=== PATIENT | female | born 1955 | race Caucasian/White ===

== ENCOUNTER → 2017-11-29 07:50 | Outpatient (CLI) | payer MEDICARE, MEDICAID, SELFPAY ==
--- NOTE | 2017-11-29 07:56 | MRI_ITS ---
STUDY: MRI LUMBAR SPINE WITHOUT CONTRAST REASON FOR EXAM: Female, 62 years old. Low back pain. TECHNIQUE: Standardized fat and water weighted pulse sequences were obtained in the sagittal and axial planes. COMPARISON: None FINDINGS: T12-L1: Normal endplates. Normal disc height, signal and morphology. Normal bilateral facet joints. Normal central canal and bilateral lateral recesses. Normal bilateral intervertebral neural foramina. There is an exaggerated lumbar lordosis. There is no substantial scoliosis. Normal conus medullaris that terminates at the L1 level. L1-2: There is irregularity of the endplates probably related to small Schmorl's nodes. There is narrowing of the disc with endplate osteophytes. There is mild degenerative arthropathy of facet joints. Neural foramina are narrowed without evidence for nerve impingement. L2-3: There is mild annular disk bulge and osteophyte complex. There is mild degenerative arthropathy of the facet joints. Bilateral neuroforamina are narrowed without MR evidence for nerve impingement. There is no significant central canal stenosis. L3-4: There is mild annular disk bulge and osteophyte complex. There is mild degenerative arthropathy of the facet joints. Bilateral neuroforamina are narrowed with MR evidence for potential bilateral L3 nerve impingement. There is no significant central canal stenosis. Interpedicular screws are visible at L4. L4-5: There is mild anterolisthesis at this level. Patient has had surgical fusion of the segments with interpedicular screws and rods. There is significant artifact in this region related to the screws. Neural foramina are mildly narrowed without evidence for nerve impingement. L5-S1: There is narrowing of the disc. There is a disc bulge and osteophyte complex. There is mild degenerative arthropathy of facet joints. Neural foramina are bilaterally narrowed with potential impingement of the L5 nerve roots at the neural foramina, left greater than right. There is no significant central acquired canal stenosis. Normal visualized sacral ala. There are multiple renal cysts. The largest is on the left and measures approximately 4.3 cm. Paraspinal soft tissues are within normal limits. MRI/Spine Lumbar (Routine) IMPRESSION: 1. Status post surgical fusion of the L4 and L5 vertebral segments with interpedicular screws and rods. 2. Multilevel degenerative disc disease and degenerative arthropathy of the lumbar spine with acquired canal stenosis, neural foraminal narrowing and potential nerve impingement, as described. 3. Multiple bilateral renal cysts. Electronically Signed: Jane Spann MD at 10:11 EDT , Service support ,
== END ==
PROVIDERS: Family Provider Family Medicine; PCP Family Medicine; Visit Provider Anesthesiology Pain Medicine
DX: M54.9 Dorsalgia, unspecified (principal); M79.606 Pain in leg, unspecified
CPT/HCPCS: 72148

== ENCOUNTER → 2018-04-02 12:50 | Outpatient (CLI) | payer MEDICARE, MEDICAID, SELFPAY ==
[2018-04-02 14:39] LABS: Amphetamine Urine VISTA NEGATIVE (<1000 ng/mL); Barbiturate Urine VISTA NEGATIVE (< 200 ng/mL); Benzodiazepine Urine VISTA NEGATIVE (< 200 ng/mL); Cocaine Urine VISTA NEGATIVE (< 300 ng/mL); Ecstacy Urine VISTA NEGATIVE (< 500 ng/mL); Methadone Urine VISTA NEGATIVE (< 300 ng/mL); PCP Urine VISTA NEGATIVE (< 25 ng/mL); THC Urine VISTA NEGATIVE (< 50 ng/mL); Vista UDS pH Range 7
== END ==
PROVIDERS: Family Provider Family Medicine; PCP Family Medicine; Visit Provider Anesthesiology Pain Medicine
DX: F11.20 Opioid dependence, uncomplicated (principal)
CPT/HCPCS: 80307

== ENCOUNTER → 2019-01-04 12:03 | Outpatient (CLI) | payer MEDICARE, MEDICAID, SELFPAY ==
[2019-01-04 14:50] LABS: Amphetamine Urine VISTA NEGATIVE (<1000 ng/mL); Barbiturate Urine VISTA NEGATIVE (< 200 ng/mL); Benzodiazepine Urine VISTA NEGATIVE (< 200 ng/mL); Cocaine Urine VISTA NEGATIVE (< 300 ng/mL); Ecstacy Urine VISTA NEGATIVE (< 500 ng/mL); Methadone Urine VISTA NEGATIVE (< 300 ng/mL); PCP Urine VISTA NEGATIVE (< 25 ng/mL); THC Urine VISTA NEGATIVE (< 50 ng/mL); Vista UDS pH Range 7
== END ==
PROVIDERS: Family Provider Family Medicine; PCP Family Medicine; Referring Provider Anesthesiology Pain Medicine; Visit Provider Anesthesiology Pain Medicine
DX: F11.20 Opioid dependence, uncomplicated (principal)
CPT/HCPCS: 80307

== ENCOUNTER 2020-01-04 11:12 | Inpatient (IN) | payer MEDICARE, MEDICAID, SELFPAY ==
[2020-01-04] VITALS (11 sets, daily range): BP systolic 121–159; BP diastolic 71–86; PULSE 65–711; RESP 15–20; TEMP 36.3–36.8; O2SAT 90–97; BMI 45.8; BMI 45.9
--- NOTE | 2020-01-04 11:30 | NURSING ---
NO OLD EKGS
--- NOTE | 2020-01-04 11:32 | EKG12_ITS ---
Test Reason : ADMISSION Blood Pressure : / mmHG Vent. Rate : 063 BPM Atrial Rate : 063 BPM P-R Int : 182 ms QRS Dur : 092 ms QT Int : 434 ms P-R-T Axes : 052 059 049 degrees QTc Int : 444 ms Normal sinus rhythm Normal ECG When compared with ECG of 04-JAN-2020 11:26, MANUAL COMPARISON REQUIRED, DATA IS UNCONFIRMED Confirmed by QUINCY MORROW, KAYA ([id number]), market editor MARY SOLANO ([id number]) on 01/11/2020 9:49:55 AM Referred By: ABHIJIT Confirmed By:KAYA MATHEW MD
--- NOTE | 2020-01-04 11:33 | ED.VISSUMM ---
- ER Visit Summary Date of Service: 01/04/20 Chief Complaint: [Chest pain] History of Present Illness: The patient is a 64 F [presents to the emergency department complaint of chest pain that woke her up from sleep this morning. She rates the pain currently 6 out of 10. EMS gave patient aspirin and 2 nitroglycerin tablets which seem to help. Patient's had similar pain in the past when she had a dissected coronary artery that did not require any intervention. Her last cath was in 2011 at [facility] and no intervention was required with that dissected coronary artery. Patient describes a pressure and sharp pain in the center of her chest that radiates to both arms. She denies nausea or vomiting. She denies diaphoresis. She denies any significant shortness of breath. Denies recent travel or surgery. No history of PE or DVT. She has no cardiac stents. She has history of hypothyroidism, depression, and anxiety.] Physical Examination: [HEENT-PERRLA, EOMI. Cranial nerves II through XII grossly intact. TMs clear. Mucous membranes moist. No adenopathy. Cardiovascular-regular rate and rhythm without murmur or ectopy Lungs-clear to auscultation, chest wall stable without crepitus or subcu emphysema Abdomen-normoactive bowel sounds, soft, nontender, no rebound or rigidity, no peritoneal signs. Extremities-intact ?4, normal range of motion, normal pulses, atraumatic] Test Results: [EKG obtained on arrival shows sinus rhythm with a ventricular rate of 65 bpm with no acute ST segment changes.] Emergency Department Course and Treatment: [] Treatment Plan: [] Disposition: [] Impression: [] This note was generated with Active Scaler dictation software. It may contain incorrect words, spelling, and punctuation that were not noted in review of the chart prior to signing ED Disposition - Plan for ED Patient: Referrals: Sandro Landin MD [Primary Care Provider] -
[2020-01-04 11:59] LABS: Absolute Lymphocyte Count 2.35 X10^3/uL (0.83-4.51); Absolute Neutrophil Count 6.6 X10^3/uL (2.0-7.7); Basophil# 0.02 X10^3/uL; Basophil% 0.2 % (0-1); Eosinophil# 0.23 X10^3/uL; Eosinophils% 2.3 % (0-5); Hematocrit 43.5 % (37-47); Hemoglobin 14.3 g/dL (12.0-15.0); Lymphocyte # 2.35 X10^3/ul (4.0); Lymphocyte % 23.5 % (19-41); Mean Corp Hgb Conc 32.9 g/dL (32-36); Mean Corpuscular Hgb 32.1 pg (27.0-32.0); Mean Corpuscular Volume 97.5 fL (81-99); Mean Platelet Vol. 11.3 fl (6.2-12.0); Monocyte# 0.79 X10^3/uL; Monocyte% 7.9 % (0-10); NRBC Flagged by Analyzer 0 % (0-5); Neutrophil # 6.57 X10^3/uL (2.7-7.7); Neutrophil % 65.7 % (47-70); Platelet Count 295 K/mm3 (150-450); RBC Distribution Width CV 15.5 % (11.6-14.6); RBC Distribution Width SD 55.3 fl (35.1-43.9); Red Blood Count 4.46 M/mm3 (4.2-5.4)
[2020-01-04] MEDS: Nitroglycerin SL (ED/IMG/CATH) 0.4 MG TABLET SUBLINGUAL ×2 (12:05→12:25)
[2020-01-04 12:06] LABS: D-Dimer Quantitative (DVT/PE) 0.35 FEU/ug/m (0.27-0.49)
[2020-01-04] MEDS: HYDROmorphone 1 MG/ML Syringe IV (12:06)
[2020-01-04 12:15] LABS: Anion Gap 5 (5-15); BUN 16 mg/dL (7-18); BUN/Creat Ratio 18.3 RATIO (10-20); Calcium,Total 9.4 mg/dL (8.5-10.1); Chloride 105 mmol/L (98-107); Creatinine, Serum 0.87 mg/dL (0.55-1.02); EST Glomerular Filtration Rate 70 mL/min (>60); Est Glom Filt Rate - Afr Amer 84 mL/min (>60); Estimated Creatinine Clearance 55.46 ml/min; Glucose 126 mg/dL (74-106); Potassium 4.7 mmol/L (3.5-5.1); Sodium Level 138 mmol/L (136-145)
[2020-01-04] MEDS: 0.9% Normal Saline 1,000 ML 150 ML IV (12:30)
--- NOTE | 2020-01-04 12:30 | RAD_ITS ---
STUDY: X-RAY CHEST REASON FOR EXAM: Female, 64 years old. LEFT SIDED CHEST PAIN THAT STARTED THIS MORNING AROUND 0730 TECHNIQUE: Single AP portable view of the chest. COMPARISON: None. FINDINGS: EKG electrodes are seen. The lungs are clear and expanded. There is no demonstrated pleural abnormality. There is borderline cardiomegaly. Normal mediastinum and spencer. Normal visualized pulmonary arteries. There is atherosclerotic calcification of the aortic arch with tortuosity. There are degenerative changes of the visualized thoracic spine. Normal visualized ribs, clavicles, and shoulders. There is no demonstrated abnormality of the visualized soft tissue structures of the upper abdomen. RAD/Chest 1 View (Portable) IMPRESSION: Borderline cardiomegaly. No acute osseous Electronically Signed: Javier Fonseca, at 12:43 EDT , Service support ,
--- NOTE | 2020-01-04 13:00 | NURSING ---
PCU OBS NSTEMI, ACS PAINTSIL
[2020-01-04] MEDS: Enoxaparin 120 MG/0.8 ML Syringe SC ×2 (13:18→22:14)
--- NOTE | 2020-01-04 13:29 | HP.PCM_ITS ---
Problem List (1) NSTEMI (non-ST elevated myocardial infarction) Status: Acute (2) Hypothyroid Status: Chronic Qualifiers: Hypothyroidism type: unspecified Qualified Code(s): E03.9 - Hypothyroidism, unspecified (3) Depression Status: Chronic Qualifiers: Depression Type: unspecified Qualified Code(s): F32.9 - Major depressive disorder, single episode, unspecified (4) Anxiety Status: Chronic (5) Morbid obesity with BMI of 40.0-44.9, adult Status: Chronic History of Present Illness Date of Admission: 01/04/20 Chief Complaint: Chest pain - 1 day The patient is a 64 year old F with past medical history of hypothyroidism who comes in with complaints of chest pain that was substernal, radiating to both arms, associated with some lightheadedness and diaphoresis. This chest pain woke her up and lasted until the EMS came for her and gave her 2 nitros. She denied any history of heart disease. Vitals in the ED showed temp 97.4F, HR 74, BP 139/84, RR 20, Spo2 94%. Labs in the ED showed WBC 10.0, Hb 14.3, Plt 295, D-Dimer 0.35, BMP is unremarkable. Troponins are 0.223, and 1.520. EKG showed NSR, no ST-T changes. Chest X-ray showed borderline cardiomegaly. 2D-ECHO shows EF of 65%. At time of being examined, patient was pain-free. She complains rather of headache after the nitroglycerin tablets. Past Medical History Past Medical History (Chronic Problems): Chronic Problems Rosacea (Chronic) Hypothyroid (Chronic) Depression (Chronic) Anxiety (Chronic) Morbid obesity with BMI of 40.0-44.9, adult (Chronic) Allergies Cephalosporins Allergy (Verified 01/04/20 11:12) Rash sulfamethoxazole [From Bactrim] Allergy (Verified 01/04/20 11:12) Rash trimethoprim [From Bactrim] Allergy (Verified 01/04/20 11:12) Rash Home Medications: Ambulatory Orders Medication Instructions Recorded Citalopram [Celexa] 40 mg PO DAILY 11/17/15 Levothyroxine [Synthroid] 175 mcg PO DAILY 11/17/15 Metoprolol(XL)Succ [Toprol Xl 25 mg PO DAILY 11/17/15 (Beta Terry)] cycloBENZAPRine HCl [Flexeril] 10 mg PO TID PRN PRN 11/17/15 Ascorbic Acid [Vitamin C] 2,000 mg PO DAILY 01/04/20 Cranberry Conc/Ascorbic Acid 3 cap PO DAILY 01/04/20 [Cranberry 12,600 mg Softgel] Elderberry Fruit and Flower [Black 2 cap PO DAILY 01/04/20 Elderberry 575 mg Cap] Hydroxyzine HCl 25 mg PO TID PRN PRN 01/04/20 Ibuprofen 800 - 1,000 mg PO DAILY PRN PRN 01/04/20 Multivit-Min/Iron/Folic/Lutein 1 tab PO DAILY 01/04/20 [Centrum Silver Women Tablet] Oxycodone Myristate [Xtampza ER] 18 mg PO BID 01/04/20 Senna/Docusate Sodium [Senokot-S] 2 tab PO DAILY PRN PRN 01/04/20 Turmeric Root Extract [Turmeric] 1,500 mg PO DAILY 01/04/20 Surgical History: cholecystectomy, hysterectomy, total knee arthroplasty - left, - - bladder sling Psychiatric History: Anxiety, Depression [employer] 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 Lives: Spouse/ Significant Other Smoking Status: Current every day smoker Tobacco Use: Cigarettes Alcohol: None Drugs: None - *Family History Maternal History Items: Cancer - age 79 pancreatic Paternal History Items: Stroke - age 84 Sibling History Items: Cancer - breast x 2 sisters Review of Systems Constitutional: Denies: Anorexia, Chills, Fever, Malaise, Weakness, Weight Change Eyes: Denies: Blurred vision, Cataracts, Conjunctivae Inflammation, Double vision, Pain, Redness, Vision Change HEENT: Denies: Difficulty Hearing, Difficulty Swallowing, Head Aches, Hearing Changes, Sinus Congestion, Sinus Drainage Cardiovascular: Reports: Chest Pain, Chest Pressure, Chest Tightness, Light Headedness. Denies: Orthopnea, Palpitations, Paroxysmal Noc. Dyspnea Respiratory: Denies: Cough, Hemoptysis, Shortness of breath at rest, Shortness of breath upon exertion, Sputum production Gastrointestinal: Denies: Abdominal Pain, Nausea, Vomiting Genitourinary: Denies: Dysuria Musculoskeletal: Denies: Joint Pain, Joint stiffness, Joint swelling, Joint Tenderness Skin: Denies: Rash, Wounds Neurological: Denies: Difficulty swallowing, Focal weakness, Numbness, Tingling Psychiatric: Denies: Anxiety, Depression, Homicidal Ideations, Suicidal Ideations Hematologic/ Lymphatic: Denies: Easy Bruising, Easy Bleeding VTE Information - Inpt Only VTE Present on Admission: No VTE Pharm Prophylaxis ordered?: Yes Patient Problems: Active and Suspected Problems NSTEMI (non-ST elevated myocardial infarction) (Acute) - Physical Exam Vitals/I&O's: Vital Signs Temp Pulse Resp BP Pulse Ox 97.4 F L 74 20 H 139/84 H 94 01/04/20 13:20 01/04/20 13:20 01/04/20 13:20 01/04/20 13:20 01/04/20 13:20 Oxygen Delivery Method Room Air Weight: 117.4 kg Body Mass Index (BMI) 45.8 General: Alert, Oriented x3, Cooperative, No apparent distress, - - morbidly obese HEENT: Atraumatic, PERRLA, EOMI, Normocephalic Oral: Moist Mucosa Neck: Supple Lungs: Clear to auscultation, Normal air movement Cardiovascular: Regular rate, Regular Rhythm, Normal S1, Normal S2 Abdomen: Bowel Sounds Present, Soft, Non Tender, Non-Distended, No Hepato- splenomegaly Extremities: No edema Skin: No rashes, No breakdown Musculoskeletal: No Tenderness to Palpation of Joints or Extremities Lymphatic: No Cervical, Supraclavicular, or Inguinal Adenopathy Neurological: Cranial nerves II-XII grossly intact, Neuro grossly intact Psych/Mental Status: Normal Affect, Appropriate Laboratory Results 01/04/20 11:25: WBC 10.0, RBC 4.46, Hgb 14.3, Hct 43.5, MCV 97.5, MCH 32.1 H, MCHC 32.9, RDW Std Deviation 55.3 H, RDW Coeff of Era 15.5 H, Plt Count 295, MPV 11.3, Immature Gran % (Auto) 0.400, Neut % (Auto) 65.7, Lymph % (Auto) 23.5, [place] % (Auto) 7.9, Eos % (Auto) 2.3, Baso % (Auto) 0.2, Absolute Neuts (auto) 6.6, Absolute Lymphs (auto) 2.35, Nucleated RBC % 0 01/04/20 11:25: D-Dimer Quant (PE/DVT) 0.35 01/04/20 11:25: Sodium 138, Potassium 4.7, Chloride 105, Carbon Dioxide 28.0, Anion Gap 5, BUN 16, Creatinine 0.87, Estim Creat Clear Calc 55.46, Est GFR (MDRD) Af Amer 84, Est GFR (MDRD) Non-Af 70, BUN/Creatinine Ratio 18.3, Glucose 126 H, Calcium 9.4, Troponin I 0.223 H Current Medications Sodium Chloride () 1,000 mls @ 150 mls/hr IV .Q6H40M [facility] Last Admin: 01/04/20 12:30 Dose: 150 mls/hr Documented by: Nitroglycerin (Nitrostat) 0.4 mg SUBLINGUAL Q5M PRN PRN Reason: Chest pain Last Admin: 01/04/20 12:25 Dose: 0.4 mg Documented by: Assessment/Plan All Active Problems NSTEMI (non-ST elevated myocardial infarction) (Acute) Spinal stenosis (Acute) S/P laminectomy (Acute) 1. Acute NSTEMI, EKG shows no acute ST-T changes Initial troponin was 0.223, repeat troponin was 1.520. Started on Lovenox in the ED, continue on oral metoprolol, aspirin, Plavix Cardiology consulted, cardiac cath planned for a.m. 2. Hypertension, controlled, continue metoprolol 3. Hypothyroidism, continue on Synthroid 4. Morbid Obesity, BMI 45.9, lifestyle modification recommended 5. Nicotine dependence, on replacement 6. DVT PPx- on Lovenox therapeutic dosing Inpatient E&M: 08175 Init Hosp L3
--- NOTE | 2020-01-04 13:58 | ECHOD_ITS ---
Reason For Study: CP Procedure This was a 2D Doppler, Color Flow transthoracic echocardiogram. Exam performed portable in patient room. Left Ventricle Normal LV size. The estimated ejection fraction is 65 %. Normal diastology for age. No regional wall motion abnormalities noted. Right Ventricle Normal RV size. Normal systolic function. Atria Normal left atrium. Normal right atrium. No doppler evidence for ASD. Mitral Valve There is no mitral valve stenosis. No mitral valve insufficiency. Tricuspid Valve There is no tricuspid stenosis. Trivial tricuspid valve insufficiency. Unable to estimate RV systolic pressure due to insufficient tricuspid regurgitant envelope. Aortic Valve Trisinus/trileaflet aortic valve. There is no aortic stenosis. Trivial aortic valve insufficiency. Pulmonic Valve There is no pulmonic valvular stenosis. No pulmonic valve insufficiency. Great Vessels Normal aortic root. Pericardium/Pleural No pericardial effusion. MMode/2D Measurements & Calculations LVIDd: 4.1 cm IVSd: 1.6 cm Ao root diam: 3.9 cm LVIDs: 2.9 cm LVPWd: 1.3 cm LA dimension: 4.0 cm RVDd: 4.0 cm FS: 29.7 % LAV(MOD-bp): 57.4 ml LVAd ap4: 30.8 cm2 SV(MOD-sp4): 61.2 ml LAV(MOD-bp) Indexed: 27.0 ml/m2 EDV(MOD-sp4): 92.1 ml LAV(MOD-sp2): 57.3 ml EDV(sp4-el): 95.4 ml LAV(MOD-sp4): 54.9 ml LVAs ap4: 15.4 cm2 ESV(MOD-sp4): 30.9 ml ESV(sp4-el): 29.0 ml EF(MOD-sp4): 66.5 % EF(sp4-el): 69.6 % SV(sp4-el): 66.4 ml LA A4 area: 19.2 cm2 RA A4 area: 15.7 cm2 Time Measurements MV dec time: 0.23 sec Doppler Measurements & Calculations MV E max dayday: 83.0 cm/sec Lat Peak E' Dayday: 10.3 cm/sec Med Peak E' Dayday: 6.6 cm/sec MV A max dayday: 94.4 cm/sec E/E' lat: 8.1 E/E' med: 12.6 MV E/A: 0.88 MV V2 max: 111.7 cm/sec MV P1/2t max dayday: 97.3 cm/sec Ao V2 max: 119.3 cm/sec MV max P.0 mmHg MV P1/2t: 79.9 msec Ao max P.7 mmHg MV V2 mean: 60.3 cm/sec MV mean P.7 mmHg MV dec slope: 356.6 cm/sec2 MV V2 VTI: 31.0 cm MVA(P1/2t): 2.8 cm2 LV V1 max: 81.2 cm/sec PA V2 max: 84.7 cm/sec PI end-d dayday: 89.6 cm/sec LV V1 max P.6 mmHg Interpretation Summary The estimated ejection fraction is 65 %. Trivial aortic valve insufficiency. Ordering Physician: Shantel Mccloud Referring Physician: Sandro Landin Performed By: Felipe Burton RCS
--- NOTE | 2020-01-04 14:12 | EKG12_ITS ---
Test Reason : CP Blood Pressure : / mmHG Vent. Rate : 065 BPM Atrial Rate : 065 BPM P-R Int : 168 ms QRS Dur : 090 ms QT Int : 438 ms P-R-T Axes : 049 059 049 degrees QTc Int : 455 ms Normal sinus rhythm Normal ECG Confirmed by DONYA SLAUGHTER ([id number]), editorial director MARY SOLANO ([id number]) on 01/06/2020 7:37:44 AM Referred By: BERE Confirmed By:DONYA SLAUGHTER
--- NOTE | 2020-01-04 16:00 | CON.PCM_ITS ---
Reason for Consult Date of Consultation: 01/04/20 History of Present Illness: The patient is a 64 F [presents to the emergency department complaint of chest pain that woke her up from sleep this morning. She rates the pain currently 6 out of 10. EMS gave patient aspirin and 2 nitroglycerin tablets which seem to help. Patient's had similar pain in the past when she had a dissected coronary artery that did not require any intervention. Her last cath was in 2011 at [facility] and no intervention was required with that dissected coronary artery. Patient describes a pressure and sharp pain in the center of her chest that radiates to both arms. She denies nausea or vomiting. She denies diaphor esis. She denies any significant shortness of breath. Denies recent travel or surgery. No history of PE or DVT. She has no cardiac stents. She has history of hypothyroidism, depression, and anxiety. Patient's troponin went up to 1.5. Review of systems: All systems reviewed. All else is negative except that in the HPI. Past Medical History Allergies/Adverse Reactions: Allergies Cephalosporins Allergy (Verified 01/04/20 11:12) Rash sulfamethoxazole [From Bactrim] Allergy (Verified 01/04/20 11:12) Rash trimethoprim [From Bactrim] Allergy (Verified 01/04/20 11:12) Rash Home Medications: Ambulatory Orders Medication Instructions Recorded Citalopram [Celexa] 40 mg PO DAILY 11/17/15 Levothyroxine [Synthroid] 175 mcg PO DAILY 11/17/15 Metoprolol(XL)Succ [Toprol Xl 25 mg PO DAILY 11/17/15 (Beta Terry)] cycloBENZAPRine HCl [Flexeril] 10 mg PO TID PRN PRN 11/17/15 Ascorbic Acid [Vitamin C] 2,000 mg PO DAILY 01/04/20 Cranberry Conc/Ascorbic Acid 3 cap PO DAILY 01/04/20 [Cranberry 12,600 mg Softgel] Elderberry Fruit and Flower [Black 2 cap PO DAILY 01/04/20 Elderberry 575 mg Cap] Hydroxyzine HCl 25 mg PO TID PRN PRN 01/04/20 Ibuprofen 800 - 1,000 mg PO DAILY PRN PRN 01/04/20 Multivit-Min/Iron/Folic/Lutein 1 tab PO DAILY 01/04/20 [Centrum Silver Women Tablet] Oxycodone Myristate [Xtampza ER] 18 mg PO BID 01/04/20 Senna/Docusate Sodium [Senokot-S] 2 tab PO DAILY PRN PRN 01/04/20 Turmeric Root Extract [Turmeric] 1,500 mg PO DAILY 01/04/20 Past Medical History (Chronic Problems): Chronic Problems Rosacea (Chronic) Hypothyroid (Chronic) Depression (Chronic) Anxiety (Chronic) Morbid obesity with BMI of 40.0-44.9, adult (Chronic) Surgical History: cholecystectomy, hysterectomy, total knee arthroplasty - left, - - bladder sling Psychiatric History: Anxiety, Depression 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 - *Family History Maternal History Items: Cancer - age 79 pancreatic Paternal History Items: Stroke - age 84 Sibling History Items: Cancer - breast x 2 sisters Smoking Status: Current every day smoker Objective: Vital Signs Temp Pulse Resp BP Pulse Ox 97.9 F 89 16 138/77 H 90 01/04/20 14:38 01/04/20 14:38 01/04/20 14:38 01/04/20 14:38 01/04/20 14:45 Oxygen Delivery Method Room Air Weight: 258 lb 13.163 oz Body Mass Index (BMI) 45.8 Intake and Output for Last 24 Hours 01/02/20 01/03/20 01/04/20 23:59 23:59 23:59 Intake Total 327.5 / 327.5 Balance 327.5 / 327.5 General: Awake, Alert, Oriented x 3 HEENT: Atraumatic Oral: Moist Mucosa Neck: Supple Lungs: Clear to auscultation Cardiovascular: Regular Rhythm Abdomen: Soft Extremities: No edema Skin: No Rashes Psych/Mental Status: Appropriate 01/04/20 11:25: WBC 10.0, RBC 4.46, Hgb 14.3, Hct 43.5, MCV 97.5, MCH 32.1 H, MCHC 32.9, Plt Count 295, MPV 11.3, Immature Gran % (Auto) 0.400, Neut % (Auto) 65.7, Lymph % (Auto) 23.5, [place] % (Auto) 7.9, Eos % (Auto) 2.3, Baso % (Auto) 0.2, Absolute Neuts (auto) 6.6, Nucleated RBC % 0 01/04/20 11:25: D-Dimer Quant (PE/DVT) 0.35 01/04/20 11:25: Sodium 138, Potassium 4.7, Chloride 105, Carbon Dioxide 28.0, Anion Gap 5, BUN 16, Creatinine 0.87, Est GFR (MDRD) Af Amer 84, Est GFR (MDRD) Non-Af 70, BUN/Creatinine Ratio 18.3, Glucose 126 H, Calcium 9.4, Troponin I 0.223 H 01/04/20 14:19: Troponin I 1.520 H* Rhythm: EKG: ECHO: Stress Test: Cardiac Cath: PCI: CT Surgery: Holter monitor: EPS: PPM: CXR: Chest CT Scan: Assessment/Plan 1. Non-STEMI: Agree with starting the patient on anticoagulation with heparin or Lovenox. We will proceed with coronary angiography tomorrow. Continue aspirin, Plavix and metoprolol.
[2020-01-04] MEDS: 0.9% Saline Lock 10 ML Syringe IV ×3 (16:12→17:59)
[2020-01-04] MEDS: Morphine 2 MG/ML Syringe IV (16:12)
[2020-01-04] MEDS: Ondansetron 4 MG/2 ML Vial IV (17:07)
[2020-01-04] MEDS: Ketorolac 30 MG/ML Syringe IV (17:59)
[2020-01-04] MEDS: Ketorolac 10 MG Tablet PO (22:14)
[2020-01-04] MEDS: MELATONIN 3 MG TABLET PO (22:14)
[2020-01-04] MEDS: hydrOXYzine PAM 25 MG Capsule PO (22:15)
[2020-01-05] VITALS (22 sets, daily range): BP systolic 116–154; BP diastolic 66–91; PULSE 69–88; RESP 18; TEMP 36.5–36.9; O2SAT 92–96
[2020-01-05] MEDS: Ondansetron 4 MG/2 ML Vial IV ×3 (01:11→19:33)
[2020-01-05] MEDS: 0.9% Saline Lock 10 ML Syringe IV (01:11)
[2020-01-05] MEDS: Ibuprofen 400 MG Tablet PO (04:11)
[2020-01-05 05:23] LABS: Absolute Lymphocyte Count 1.89 X10^3/uL (0.83-4.51); Absolute Neutrophil Count 6.7 X10^3/uL (2.0-7.7); Basophil# 0.02 X10^3/uL; Basophil% 0.2 % (0-1); Eosinophil# 0.19 X10^3/uL; Hematocrit 42.5 % (37-47); Hemoglobin 13.5 g/dL (12.0-15.0); Lymphocyte # 1.89 X10^3/ul (4.0); Mean Corp Hgb Conc 31.8 g/dL (32-36); Mean Corpuscular Hgb 31.3 pg (27.0-32.0); Mean Corpuscular Volume 98.4 fL (81-99); Mean Platelet Vol. 10.2 fl (6.2-12.0); Monocyte# 0.66 X10^3/uL; NRBC Flagged by Analyzer 0 % (0-5); Neutrophil # 6.65 X10^3/uL (2.7-7.7); Neutrophil % 70.5 % (47-70); Platelet Count 277 K/mm3 (150-450); RBC Distribution Width CV 15.6 % (11.6-14.6); RBC Distribution Width SD 56.3 fl (35.1-43.9); Red Blood Count 4.32 M/mm3 (4.2-5.4); White Blood Count 9.4 K/mm3 (4.4-11.0)
[2020-01-05 05:42] LABS: ALB/GLOB Ratio 0.9 RATIO (0.9-2.4); AST(SGOT) 120 U/L (15-37); Alanine Aminotransfer ALT/SGPT 85 U/L (13-56); Albumin, Serum 3.2 g/dL (3.2-5.0); Alkaline Phosphatase 121 U/L (45-117); Anion Gap 6 (5-15); BUN 14 mg/dL (7-18); BUN/Creat Ratio 18.2 RATIO (10-20); Calcium,Total 8.9 mg/dL (8.5-10.1); Chloride 103 mmol/L (98-107); Cholesterol 237 mg/dL (200); Creatinine, Serum 0.77 mg/dL (0.55-1.02); EST Glomerular Filtration Rate 81 mL/min (>60); Est Glom Filt Rate - Afr Amer 98 mL/min (>60); Estimated Creatinine Clearance 59.91 ml/min; Globulin 3.5 g/dL (2.2-4.2); Glucose 105 mg/dL (74-106); High Density Lipoprotein 45 mg/dL; Protein, Total 6.7 g/dL (6.4-8.2); Sodium Level 138 mmol/L (136-145); Triglycerides 135 mg/dL; Very Low Density Lipoprotein 27 mg/dL (5-40)
[2020-01-05] MEDS: Aspirin E.C. 81 MG Tablet PO (06:29)
[2020-01-05] MEDS: Levothyroxine 175 MCG Tablet PO (06:29)
[2020-01-05] MEDS: hydrOXYzine PAM 25 MG Capsule PO ×3 (06:29→21:03)
[2020-01-05] MEDS: Clopidogrel Bisulfate 75 MG Tablet PO (06:30)
[2020-01-05] MEDS: Metoprolol(XL)Succ 25 MG Tablet PO (06:30)
--- NOTE | 2020-01-05 08:35 | PCM.PN.HOSP ---
Patient Problems: Active and Suspected Problems NSTEMI (non-ST elevated myocardial infarction) (Acute) Reason for Visit: Follow-up on acute NSTEMI Subjective: Patient was seen and examined. She had a cardiac cath done that was unremarkable. Denied any new complaints. CT of the chest rule out PE was recommended. Objective: Physical exam: General: Alert, Oriented x3, Cooperative, No apparent distress HEENT: Atraumatic, PERRLA, EOMI, Normocephalic Oral: Dry Mucosa Neck: Supple, No JVD, Negative Carotid Bruits Lungs: Clear to auscultation, Normal air movement, No rhonchi, No wheeze Cardiovascular: Irregular Rate - Afib, rate controlled. Abdomen: Bowel Sounds Present, Soft, Non Tender, Non-Distended, No Hepato-splenomegaly Extremities:Edema +1-2, with evidence of wrinkling of skin Skin: - - see previous notes as lower extremities are DOE-wrapped Musculoskeletal: No Tenderness to Palpation of Joints or Extremities Lymphatic: No Cervical, Supraclavicular, or Inguinal Adenopathy Neurological: Cranial nerves II-XII grossly intact, Neuro grossly intact, Motor Exam 5/5 strength throughout Psych/Mental Status: Normal Affect, Appropriate, Alert and oriented to time, place, person, mood and affect Vitals/I&O's: Vital Signs Temp Pulse Resp BP Pulse Ox 98.1 F 76 18 152/85 H 96 01/05/20 06:25 01/05/20 06:49 01/05/20 06:25 01/05/20 06:30 01/05/20 06:25 Oxygen Delivery Method Room Air Weight: 114.3 kg Body Mass Index (BMI) 45.8 Intake and Output for Last 24 Hours 01/03/20 01/04/20 01/05/20 23:59 23:59 23:59 Intake Total 767.5 / 767.5 Balance 767.5 / 767.5 Laboratory Results 01/04/20 11:25: WBC 10.0, RBC 4.46, Hgb 14.3, Hct 43.5, MCV 97.5, MCH 32.1 H, MCHC 32.9, RDW Std Deviation 55.3 H, RDW Coeff of Era 15.5 H, Plt Count 295, MPV 11.3, Immature Gran % (Auto) 0.400, Neut % (Auto) 65.7, Lymph % (Auto) 23.5, Jessamine % (Auto) 7.9, Eos % (Auto) 2.3, Baso % (Auto) 0.2, Absolute Neuts (auto) 6.6, Absolute Lymphs (auto) 2.35, Nucleated RBC % 0 01/04/20 11:25: D-Dimer Quant (PE/DVT) 0.35 01/04/20 11:25: Sodium 138, Potassium 4.7, Chloride 105, Carbon Dioxide 28.0, Anion Gap 5, BUN 16, Creatinine 0.87, Estim Creat Clear Calc 55.46, Est GFR (MDRD) Af Amer 84, Est GFR (MDRD) Non-Af 70, BUN/Creatinine Ratio 18.3, Glucose 126 H, Calcium 9.4, Troponin I 0.223 H 01/04/20 14:19: Troponin I 1.520 H* 01/04/20 17:15: Troponin I 8.540 H* 01/05/20 04:46: WBC 9.4, RBC 4.32, Hgb 13.5, Hct 42.5, MCV 98.4, MCH 31.3, MCHC 31.8 L, RDW Std Deviation 56.3 H, RDW Coeff of Era 15.6 H, Plt Count 277, MPV 10.2, Immature Gran % (Auto) 0.300, Neut % (Auto) 70.5 H, Lymph % (Auto) 20.0, Jessamine % (Auto) 7.0, Eos % (Auto) 2.0, Baso % (Auto) 0.2, Absolute Neuts (auto) 6.7, Absolute Lymphs (auto) 1.89, Nucleated RBC % 0 01/05/20 04:46: Sodium 138, Potassium 4.0, Chloride 103, Carbon Dioxide 29.0, Anion Gap 6, BUN 14, Creatinine 0.77, Estim Creat Clear Calc 59.91, Est GFR (MDRD) Af Amer 98, Est GFR (MDRD) Non-Af 81, BUN/Creatinine Ratio 18.2, Glucose 105, Calcium 8.9, Total Bilirubin 0.40, AST 120 H, ALT 85 H, Alkaline Phosphatase 121 H, Total Protein 6.7, Albumin 3.2, Globulin 3.5, Albumin/Globulin Ratio 0.9, Triglycerides 135, Cholesterol 237 H, LDL Cholesterol 165 H, VLDL Cholesterol 27, HDL Cholesterol 45 Current Medications Acetaminophen (Tylenol) 650 mg PO Q6H PRN PRN PRN Reason: Pain Score 1-10/Temp > 100.7 F Aspirin (Ecotrin) 81 mg PO DAILY@0800 [facility] Last Admin: 01/05/20 06:29 Dose: 81 mg Documented by: Citalopram Hydrobromide (Celexa) 30 mg PO DAILY [facility] Clopidogrel Bisulfate (Plavix) 75 mg PO DAILY [facility] Last Admin: 01/05/20 06:30 Dose: 75 mg Documented by: Cyclobenzaprine HCl (Flexeril) 10 mg PO TID PRN PRN PRN Reason: muscle relaxation Enoxaparin Sodium (Lovenox) 120 mg SC Q12 [facility] Last Admin: 01/05/20 06:29 Dose: Not Given Documented by: Hydroxyzine Pamoate (Vistaril Pamoate Capsule) 25 mg PO TID [facility] Last Admin: 01/05/20 06:29 Dose: 25 mg Documented by: Sodium Chloride () 1,000 mls @ 0 mls/hr IV .Q0M [facility] Levothyroxine Sodium (Synthroid) 175 mcg PO DAILY@0600 [facility] Last Admin: 01/05/20 06:29 Dose: 175 mcg Documented by: Metoprolol Succinate (Toprol Xl (Beta Terry)) 25 mg PO DAILY [facility] Last Admin: 01/05/20 06:30 Dose: 25 mg Documented by: Morphine Sulfate () 2 mg IV Q3H PRN PRN PRN Reason: Pain Score 6-10/10 Last Admin: 01/04/20 16:12 Dose: 2 mg Documented by: Nicotine (Nicoderm Cq (Pbkc)) 21 mg TRANSDERM. DAILY [facility] Nicotine Polacrilex (Rugby Nicotine (Bkc)) 2 mg PO Q2H PRN PRN PRN Reason: Nicotine Craving Nitroglycerin (Nitrostat) 0.4 mg SUBLINGUAL Q5M PRN PRN Reason: CARDIAC/CHEST PAIN Ondansetron HCl (Zofran) 4 mg IV Q8H PRN PRN PRN Reason: NAUSEA/VOMITING Last Admin: 01/05/20 01:11 Dose: 4 mg Documented by: Senna/Docusate Sodium (Senokot-S, Sena-Colace) 2 tablet PO DAILY PRN PRN PRN Reason: Constipation Sodium Chloride () 10 - 40 ml IV UD PRN PRN Reason: SALINE FLUSH Last Admin: 01/05/20 01:11 Dose: 10 ml Documented by: STROKE Vital Signs/Narrative: Vital Signs Temp Pulse Resp BP Pulse Ox 01/05/20 06:49 76 01/05/20 06:30 88 152/85 H 01/05/20 06:25 98.1 F 88 18 152/85 H 96 Medical Necessity - Tobacco Use Smoking Status: Current every day smoker Tobacco Use: Cigarettes Assessment/Plan All Active Problems NSTEMI (non-ST elevated myocardial infarction) (Acute) Spinal stenosis (Acute) S/P laminectomy (Acute) 1. Acute NSTEMI, post cardiac cath on 01/05/[address] of the chest plan for tomorrow after IV fluids to prevent contrast nephropathy 2. Hypertension, controlled, continue metoprolol 3. Hypothyroidism, continue on Synthroid 4. Morbid Obesity, BMI 45.9, lifestyle modification recommended 5. Nicotine dependence, on replacement 6. DVT PPx- on Lovenox therapeutic dosing Inpatient E&M: 31766 Subs Hosp L2
--- NOTE | 2020-01-05 09:10 | NURSING ---
This RN called and gave report to BEATRICE Suárez in laborer.
--- NOTE | 2020-01-05 10:04 | CASEMGMT ---
Pt is getting a heart cath at this time. This RN CM to f/u later for CM assessment. SStaten RN CM
--- NOTE | 2020-01-05 10:57 | CL.D_ITS ---
Patient Name: EMELY SAL Study Date: 01/05/2020 Performing: Tyrel Rodríguez MD Ht: 63 inches 160 cm : 1955 Wt: 251.7 lbs 114 kg Age: 64 Gender: female BSA: 2.13 PROCEDURE(S) PERFORMED [id number] GUIDED ACCESS [id number] CLINICAL PROFILE AND INDICATIONS Indications: ACS <= 24 hrs Heart Failure: None Stress/Imaging Stress/Image Study Performed: No CAD Presentations: Non-STEMI. Symptom onset Date/Time: 01/04/20 Time Not Available CONCLUSIONS No significant obstructive stenoses. No significant RECOMMENDATIONS DESCRIPTION OF PROCEDURE The patient arrived to the procedure lab. The risks and benefits of the procedure as well as a full d escription of our services here and current unavailability of surgical backup were fully explained to the patient and/or their significant other prior to the catheterization. The Timeout was completed, verifying the correct patient and procedure. The patient's procedural site was prepped and draped in the usual fashion. Local anesthetic was given subcutaneously to right radial region with Lidocaine 2% . Using a modified Seldinger technique, and ultrasound guidance,arterial access was obtained via the right radial artery, a 6Fr sheath was inserted. Left Coronary Artery selective angiography was perfo rmed in multiple views using a 5 Fr. JL3.5 catheter. Right Coronary Artery selective angiography was then performed in multiple views using a 5 Fr. JR 4 catheter.The arterial sheath was pulled and a TR Band was applied for hemostasis-13 cc air CORONARY ANGIOGRAPHY DOMINANCE: Right Dominant LEFT HEART ASSESSMENT Left Ventricular Ejection Fraction: by Echo 65 % LEFT MAIN: Mild luminal irregularities LEFT ANTERIOR DESCENDING ARTERY: Mild luminal irregularities CIRCUMFLEX ARTERY: Mild luminal irregularities. There is an area in the distal LCx with about 30% mandy owing compared the segment imeediately proximal to it that could be due to intramural hematoma. Howev er, there is a branch that comes off at this location and it can be either normal tapering of the ves bassam or mild atherosclerosis as well. RIGHT CORONARY ARTERY: Mild luminal irregularities VALVE FINDINGS: No Aortic Valve Stenosis COMPLICATIONS No Complications PROCEDURE MEDICATIONS Versed 1 mg IV Fentanyl 50 mcg IV Versed 1 mg IV Oxygen: 2 L/min via nasal cannula Heparin given IA 01/05/2020 10:18:44 Verapamil 2.5mg, Ntg 100mcgs, 3000 units of Heparin given IA 01/05/2020 10:18:44 SUMMARY OF HEMODYNAMIC DATA Time AIR REST ECG 09:42:27 AO 104/71 (88) SA 10:21:30 LV 129/-5, 16 10:25:08 LV 126/-6, 18 10:25:15 LVp 126/0, 12 10:25:23 AOp 129/69 (97) 10:25:28 Signed By Tyrel Rodríguez MD On 01/05/2020 10:57:19 AM Tyrel Rodríguez MD
--- NOTE | 2020-01-05 11:01 | PN.CARD_ITS ---
Subjectve: Improving. No significant CP Objective: Vital Signs Temp Pulse Resp BP Pulse Ox 98.3 F 72 18 134/66 H 94 01/05/20 10:45 01/05/20 10:45 01/05/20 10:45 01/05/20 10:45 01/05/20 10:45 Oxygen Delivery Method Room Air Weight: 251 lb 15.814 oz Body Mass Index (BMI) 45.8 Intake and Output for Last 24 Hours 01/03/20 01/04/20 01/05/20 23:59 23:59 23:59 Intake Total 767.5 / 767.5 Balance 767.5 / 767.5 General: Awake, Alert, Oriented x 3 HEENT: Atraumatic Oral: Moist Mucosa Neck: Supple Lungs: Clear to auscultation Cardiovascular: Regular Rhythm Abdomen: Soft Extremities: No edema Skin: No Rashes Psych/Mental Status: Appropriate 01/04/20 11:25: WBC 10.0, RBC 4.46, Hgb 14.3, Hct 43.5, MCV 97.5, MCH 32.1 H, MCHC 32.9, Plt Count 295, MPV 11.3, Immature Gran % (Auto) 0.400, Neut % (Auto) 65.7, Lymph % (Auto) 23.5, Woodruff % (Auto) 7.9, Eos % (Auto) 2.3, Baso % (Auto) 0.2, Absolute Neuts (auto) 6.6, Nucleated RBC % 0 01/04/20 11:25: D-Dimer Quant (PE/DVT) 0.35 01/04/20 11:25: Sodium 138, Potassium 4.7, Chloride 105, Carbon Dioxide 28.0, Anion Gap 5, BUN 16, Creatinine 0.87, Est GFR (MDRD) Af Amer 84, Est GFR (MDRD) Non-Af 70, BUN/Creatinine Ratio 18.3, Glucose 126 H, Calcium 9.4, Troponin I 0.223 H 01/04/20 14:19: Troponin I 1.520 H* 01/04/20 17:15: Troponin I 8.540 H* 01/05/20 04:46: WBC 9.4, RBC 4.32, Hgb 13.5, Hct 42.5, MCV 98.4, MCH 31.3, MCHC 31.8 L, Plt Count 277, MPV 10.2, Immature Gran % (Auto) 0.300, Neut % (Auto) 70.5 H, Lymph % (Auto) 20.0, Woodruff % (Auto) 7.0, Eos % (Auto) 2.0, Baso % (Auto) 0.2, Absolute Neuts (auto) 6.7, Nucleated RBC % 0 01/05/20 04:46: Sodium 138, Potassium 4.0, Chloride 103, Carbon Dioxide 29.0, Anion Gap 6, BUN 14, Creatinine 0.77, Est GFR (MDRD) Af Amer 98, Est GFR (MDRD) Non-Af 81, BUN/Creatinine Ratio 18.2, Glucose 105, Calcium 8.9, Total Bilirubin 0.40, Triglycerides 135, Cholesterol 237 H, LDL Cholesterol 165 H, VLDL Cholesterol 27, HDL Cholesterol 45 Rhythm: EKG: ECHO: Stress Test: Cardiac Cath: PCI: CT Surgery: Holter monitor: EPS: PPM: CXR: Chest CT Scan: Medical Necessity - Tobacco Use Smoking Status: Current every day smoker Tobacco Use: Cigarettes Assessment/Plan 1. NSTEMI: Coronary angiography revealed no significant stenoses that could explain the degree of troponin elevation. Consider CT chest to r/o PE. If CT chest is -ve, please d/c lovenox.
[2020-01-05] MEDS: Citalopram 20 MG Tablet 30 MG PO (11:24)
[2020-01-05] MEDS: 0.9% Normal Saline 1,000 ML 100 ML IV (11:25)
[2020-01-05] MEDS: Morphine 2 MG/ML Syringe IV ×2 (11:26→19:41)
--- NOTE | 2020-01-05 11:42 | CASEMGMT ---
BEATRICE BENITEZ assessment: Face to Face with patient for initial transition planning/care coordination assessment. BEATRICE BENITEZ introduced self and role at [facility], pt voices understanding and consents to assessment at this time. Pt is sitting up in bed in no distress at this time. Pt is A/Ox4 at this time and answers all questions appropriately at this time. Care providers, pharmacy, and demographics verified at this time. Presentation: Left-sided CP Admitting dx: NSTEMI PCP: Sandro Landin Specialists: CAMILA Prabhakar Preferred Pharmacy: [facility] Insurance: [facility] A/B, [facility] Prescription Benefit: Silver[employer] Living Will/HPOA: Pt states does not have LW/HPOA but states has info at home and does not know how to complete. This RN ELI advised pt that [facility] SW can assist her in completing at this time and pt states she would like to complete AD at this time. Wilbert CAR aware, voices understanding. LNOK: Shukri Hernandez Sr, sig other Living Arrangements: Pt states lives with sig other in 1 story home with 1 step in and states no concerns at home at this time. Pt states is independent with ADL's. Transportation: Pt states drives self and states no transportation concerns at this time. DME/HHC: Pt states has the following DME: cane, walker, raised toilet seat, and shower chair. Pt states no need for any further DME at this time. Pt states no hx of HHC but has been to [facility] in [facility] in the past. Pt states no concerns with going home at time of discharge. Pt states is on disability. Pt states smokes 1.5pk/day and drinks ETOH occasionally. Pt states no further concerns/needs at this time. CM to follow for any further discharge planning/needs. Advised pt to ask for CM if any further questions/concerns/needs arise, voices understanding. Pt Goal: Home Plan: Home [place] BEATRICE BENITEZ
[2020-01-05] MEDS: 0.9% Normal Saline 1,000 ML 125 ML IV (11:58)
--- NOTE | 2020-01-05 13:22 | CASEMGMT ---
RN ELI indicated patient would like to completed Healthcare Power of Financial Services Auditor and a Healthcare Living Will. SW met with patient, introduced self and role at [facility]. She does not have her daughter's phone number as she does not have her cell phone here. SW told her SW will need those numbers. She will contact her significant other later and get her daughter's phone number. She told SW to check back tomorrow. Venessa ZHU MSW
[2020-01-05] MEDS: Enoxaparin 120 MG/0.8 ML Syringe SC (21:03)
[2020-01-05] MEDS: Acetaminophen 325 MG Tablet 650 MG PO (22:16)
[2020-01-05] MEDS: cycloBENZAPRine HCl 10 MG Tablet PO (22:16)
[2020-01-06] VITALS (7 sets, daily range): BP systolic 121–162; BP diastolic 75–91; PULSE 67–80; RESP 16–18; TEMP 36.6–36.9; O2SAT 93–94
[2020-01-06] MEDS: Levothyroxine 175 MCG Tablet PO (05:53)
[2020-01-06] MEDS: hydrOXYzine PAM 25 MG Capsule PO (05:53)
--- NOTE | 2020-01-06 07:00 | CT_ITS ---
STUDY: CTA CHEST REASON FOR EXAM: Female, 64 years old. PE -- NSTEMI,HEART CATH RADIATION DOSAGE (If Supplied By Facility): CTDIvol = ( 13.85 ) mGy, DLP = ( 486.72 ) mGycm TECHNIQUE: The examination was performed with the intravenous administration of 100CC ISOVUE 370. Post-processing of the angiographic images was performed, with multiplanar reformation and 3D reconstruction. Individualized dose optimization techniques were used for this CT. COMPARISON: None. FINDINGS: Normal enhancement of the main pulmonary artery and right and left pulmonary arteries. Normal enhancement of the bilateral peripheral pulmonary arteries. There is no demonstrated pulmonary embolism. Normal thoracic aorta and visualized great vessels. There is no demonstrated aortic dissection. Normal heart and pericardium. Normal mediastinum. Normal hilar regions. Normal visualized trachea and bronchi. The lungs are well expanded. Normal pulmonary parenchyma. Normal pleura. Normal chest wall structures. There are degenerative changes of thoracic spine. Mild dextroscoliosis. Normal visualized upper abdomen. CT/CTA Chest W/WO Contrast IMPRESSION: Normal CTA chest examination, without a demonstrated pulmonary embolism or arterial dissection. Electronically Signed: Javier Fonseca, at 8:39 EDT , Service support ,
[2020-01-06] MEDS: 0.9% Normal Saline 1,000 ML 100 ML IV (08:55)
[2020-01-06] MEDS: Citalopram 20 MG Tablet 30 MG PO (08:57)
[2020-01-06] MEDS: Aspirin E.C. 81 MG Tablet PO (08:57)
[2020-01-06] MEDS: Clopidogrel Bisulfate 75 MG Tablet PO (08:59)
[2020-01-06] MEDS: Metoprolol(XL)Succ 25 MG Tablet PO (08:59)
--- NOTE | 2020-01-06 08:59 | PCM.DC ---
- Discharge Diagnoses Current Active Problems: Current Active and Chronic Problems NSTEMI (non-ST elevated myocardial infarction) (Acute) You will use the following diet at home:: Cardiac Discharge Activity: Return to Normal Activity Call your doctor if you observe: Shortness of breath, Dizziness, Fainting spells, Chest pain Allergies/Adverse Reactions: Allergies Cephalosporins Allergy (Verified 01/04/20 11:12) Rash sulfamethoxazole [From Bactrim] Allergy (Verified 01/04/20 11:12) Rash trimethoprim [From Bactrim] Allergy (Verified 01/04/20 11:12) Rash Medications to take at Discharge Citalopram [Celexa] 40 mg PO DAILY 11/17/15 Levothyroxine [Synthroid] 175 mcg PO DAILY 11/17/15 Metoprolol(XL)Succ [Toprol Xl (Beta Terry)] 25 mg PO DAILY 11/17/15 cycloBENZAPRine HCl [Flexeril] 10 mg PO TID PRN PRN 11/17/15 Ascorbic Acid [Vitamin C] 2,000 mg PO DAILY 01/04/20 Cranberry Conc/Ascorbic Acid [Cranberry 12,600 mg Softgel] 3 cap PO DAILY 01/04/20 Elderberry Fruit and Flower [Black Elderberry 575 mg Cap] 2 cap PO DAILY 01/04/20 Hydroxyzine HCl 25 mg PO TID PRN PRN 01/04/20 Multivit-Min/Iron/Folic/Lutein [Centrum Silver Women Tablet] 1 tab PO DAILY 01/04/20 Oxycodone Myristate [Xtampza ER] 18 mg PO BID 01/04/20 Senna/Docusate Sodium [Senokot-S] 2 tab PO DAILY PRN PRN 01/04/20 Turmeric Root Extract [Turmeric] 1,500 mg PO DAILY 01/04/20 Aspirin E.C. [Ecotrin] 81 mg PO DAILY@0800 #30 tab 01/06/20 Atorvastatin Calcium [Lipitor] 80 mg PO QHS #30 tab 01/06/20 Clopidogrel Bisulfate [Plavix] 75 mg PO DAILY #30 tab 01/06/20 The following prescriptions were given: Aspirin E.C. [Ecotrin] 81 mg PO DAILY@0800 #30 tab Transmission Status: Pending to [facility]/pharmacy #[id number] Atorvastatin Calcium [Lipitor] 80 mg PO QHS #30 tab Transmission Status: Pending to [facility]/pharmacy #[id number] Clopidogrel Bisulfate [Plavix] 75 mg PO DAILY #30 tab Transmission Status: Pending to [facility]/pharmacy #[id number] Primary Care Physician: Sandro Landin MD [Primary Care Provider] - Please follow up with your Primary Care Physician in: 1 Week Test Results: Test results from this visit will be discussed in further detail at your follow-up appointment, if applicable. Please Follow Up With: Fish Rodríguez MD When: 2 Weeks Proposed Discharge Date: 01/06/20
[2020-01-06 09:23] LABS: Anion Gap 4 (5-15); BUN 12 mg/dL (7-18); BUN/Creat Ratio 16.3 RATIO (10-20); Calcium,Total 9.1 mg/dL (8.5-10.1); Chloride 106 mmol/L (98-107); Creatinine, Serum 0.73 mg/dL (0.55-1.02); EST Glomerular Filtration Rate 85 mL/min (>60); Est Glom Filt Rate - Afr Amer 103 mL/min (>60); Glucose 101 mg/dL (74-106); Potassium 3.9 mmol/L (3.5-5.1); Sodium Level 141 mmol/L (136-145)
--- NOTE | 2020-01-06 10:05 | PHA.DC.MC ---
Pharmacy Service has performed discharge medication reconciliation and counseling for this patient. 1. ASPIRIN 81MG PO DAILY 2. CLOPIDOGREL 75MG PO DAILY 3. ATORVASTATIN 80MG PO QHS While speaking to patient regarding atorvastatin, pt verbalized that she absolutely will not take a statin due to side effects that family members have experienced. This RPh explained that she may not experience the same side effects and the benefit greatly outweighs the risk of not taking a statin. She said her PCP has tried to start a statin and she will not take it. States she will take fish oil to which this RPh explained will not do the job we are using the atorvastatin for. ACCESS CONTROL SPECIALIST Elizabeth notified of refusal. The patient's discharge medication list was reviewed for discrepancies and discrepancies were resolved. Home Medications Citalopram [Celexa] 40 mg PO DAILY 11/17/15 Levothyroxine [Synthroid] 175 mcg PO DAILY 11/17/15 Metoprolol(XL)Succ [Toprol Xl (Beta Terry)] 25 mg PO DAILY 11/17/15 cycloBENZAPRine HCl [Flexeril] 10 mg PO TID PRN PRN 11/17/15 Ascorbic Acid [Vitamin C] 2,000 mg PO DAILY 01/04/20 Cranberry Conc/Ascorbic Acid [Cranberry 12,600 mg Softgel] 3 cap PO DAILY 01/04/20 Elderberry Fruit and Flower [Black Elderberry 575 mg Cap] 2 cap PO DAILY 01/04/20 Hydroxyzine HCl 25 mg PO TID PRN PRN 01/04/20 Multivit-Min/Iron/Folic/Lutein [Centrum Silver Women Tablet] 1 tab PO DAILY 01/04/20 Oxycodone Myristate [Xtampza ER] 18 mg PO BID 01/04/20 Senna/Docusate Sodium [Senokot-S] 2 tab PO DAILY PRN PRN 01/04/20 Turmeric Root Extract [Turmeric] 1,500 mg PO DAILY 01/04/20 Aspirin E.C. [Ecotrin] 81 mg PO DAILY@0800 #30 tab 01/06/20 Atorvastatin Calcium [Lipitor] 80 mg PO QHS #30 tab 01/06/20 Clopidogrel Bisulfate [Plavix] 75 mg PO DAILY #30 tab 01/06/20 The patient was counseled on the following discharge medications and changes in medications for homegoing were reviewed. The Reason for Use, instructions for use, and potential side effects were reviewed for all new medications. The patient's questions regarding all of their medications were answered. The patient was able to verbally demonstrate an understanding of their discharge medications.
[2020-01-06] MEDS: cycloBENZAPRine HCl 10 MG Tablet PO (10:35)
[2020-01-06] MEDS: Acetaminophen 325 MG Tablet 650 MG PO (10:55)
--- NOTE | 2020-01-06 12:43 | CASEMGMT ---
SW checked in with patient this am to complete advance directives. She was eating breakfast and she said she forgot to get her daughter's number. SW told her to finish her breakfast and once she gets the number and is ready to complete the documents to ask for Social Work. Patient was then discharged. Venessa ESPINOZA
--- NOTE | 2020-01-06 13:41 | PCM.DC.SUM ---
<Elizabeth Mcgee - Last Filed: 01/06/20 13:47> Discharge Date and Diagnosis Date of Admission: 01/04/20 Date of Discharge: 01/06/20 - Primary Discharge Diagnosis Acute Problems: 1. NSTEMI 2. Hypertension 3. Hyperlipidemia 4. Hypothyroidism 5. Morbid obesity 6. Tobacco dependence 7. Depression - Secondary Discharge Diagnosis Chronic Problems: Chronic Problems Rosacea (Chronic) Hypothyroid (Chronic) Depression (Chronic) Anxiety (Chronic) Morbid obesity with BMI of 40.0-44.9, adult (Chronic) Hospital Course and Treatment Imaging Results: Diagnostic Data Chest X-Ray 01/04/20 12:30 IMPRESSION: Borderline cardiomegaly. No acute osseous Electronically Signed: Javier Fonseca, at 12:43 EDT , Service support , Chest CTA 01/06/20 07:00 IMPRESSION: Normal CTA chest examination, without a demonstrated pulmonary embolism or arterial dissection. Electronically Signed: Javier Fonseca, at 8:39 EDT , Service support , Dr. Rodríguez- Cardiology Operations: None Procedures: 2-D Echocardiogram, Cardiac catheterization Summary of Care Provided: The patient is a 64 year old F admitted 01/04/2020 due to chest pain. 1. NSTEMI-troponin peaked at 8. Cardiology consulted during admission. Echocardiogram demonstrated an EF of 65%. Patient underwent cardiac catheterization which showed nonobstructive coronary arteries. No significant stenosis that could explain elevated troponin. CT of chest normal. Continue aspirin, Plavix, statin, beta-terry. Follow-up with cardiology in 2 weeks. 2. Hypertension-stable, continue metoprolol. 3. Hyperlipidemia-continue statin. 4. Hypothyroidism-continue Synthroid regimen. 5. Morbid obesity-encouraged diet and lifestyle modifications. 6. Tobacco dependence-encouraged cessation. Nicotine replacement patch prescribed at discharge. 7. Depression-continue citalopram. Patient seen and examined prior to discharge. Physical assessment as noted below. Patient is stable for discharge with follow up recommendations as noted above. This patient was seen by Elizabeth Everardo, REHAB DIRECTOR OCCUPATIONAL THERAPIST-C under the supervision of Dr. Mccloud. - Physical Exam Vitals/I&O's: Vital Signs Temp Pulse Resp BP Pulse Ox 98.5 F 80 16 143/91 H 93 01/06/20 09:03 01/06/20 09:03 01/06/20 09:03 01/06/20 10:47 01/06/20 09:03 Oxygen Delivery Method Room Air Weight: 253 lb 8.505 oz Body Mass Index (BMI) 45.8 Intake and Output for Last 24 Hours 01/04/20 01/05/20 01/06/20 23:59 23:59 23:59 Intake Total 767.5 / 767.5 2388.33 / 2388.33 120 / 120 Balance 767.5 / 767.5 2388.33 / 2388.33 120 / 120 General: Alert, Oriented x3, Cooperative HEENT: Atraumatic, PERRLA, EOMI, Normocephalic Neck: Supple, No JVD, Negative Carotid Bruits Lungs: Clear to auscultation, Normal air movement Cardiovascular: Regular rate, No murmurs Abdomen: Bowel Sounds Present, Soft, Non Tender, Non-Distended, Obese Extremities: No clubbing, No cyanosis, No edema, Capillary Refill Less than 3 Seconds Skin: No rashes, No breakdown Musculoskeletal: No Tenderness to Palpation of Joints or Extremities Neurological: Cranial nerves II-XII grossly intact, Neuro grossly intact Psych/Mental Status: Normal Affect, Appropriate Laboratory Results 01/06/20 08:45: Sodium 141, Potassium 3.9, Chloride 106, Carbon Dioxide 31.0, Anion Gap 4 L, BUN 12, Creatinine 0.73, Estim Creat Clear Calc 63.20, Est GFR (MDRD) Af Amer 103, Est GFR (MDRD) Non-Af 85, BUN/Creatinine Ratio 16.3, Glucose 101, Calcium 9.1 Discharge Diet: Low fat/ Low Cholesterol Discharge Activity: Return to Normal Activity Call your doctor if you observe: Shortness of breath, Dizziness, Fainting spells, Chest pain Home Medications: Medications to take at Discharge Citalopram [Celexa] 40 mg PO DAILY 11/17/15 Levothyroxine [Synthroid] 175 mcg PO DAILY 11/17/15 Metoprolol(XL)Succ [Toprol Xl (Beta Terry)] 25 mg PO DAILY 11/17/15 cycloBENZAPRine HCl [Flexeril] 10 mg PO TID PRN PRN 11/17/15 Ascorbic Acid [Vitamin C] 2,000 mg PO DAILY 01/04/20 Cranberry Conc/Ascorbic Acid [Cranberry 12,600 mg Softgel] 3 cap PO DAILY 01/04/20 Elderberry Fruit and Flower [Black Elderberry 575 mg Cap] 2 cap PO DAILY 01/04/20 Hydroxyzine HCl 25 mg PO TID PRN PRN 01/04/20 Multivit-Min/Iron/Folic/Lutein [Centrum Silver Women Tablet] 1 tab PO DAILY 01/04/20 Oxycodone Myristate [Xtampza ER] 18 mg PO BID 01/04/20 Senna/Docusate Sodium [Senokot-S] 2 tab PO DAILY PRN PRN 01/04/20 Turmeric Root Extract [Turmeric] 1,500 mg PO DAILY 01/04/20 Aspirin E.C. [Ecotrin] 81 mg PO DAILY@0800 #30 tab 01/06/20 Atorvastatin Calcium [Lipitor] 80 mg PO QHS #30 tab 01/06/20 Clopidogrel Bisulfate [Plavix] 75 mg PO DAILY #30 tab 01/06/20 Nicotine [Nicoderm Cq (PBKC)] 21 mg TRANSDERM. DAILY #14 patch 01/06/20 Following Prescrptions Were Given to Patient: Aspirin E.C. [Ecotrin] 81 mg PO DAILY@0800 #30 tab Transmission Status: Received by [id number] Atorvastatin Calcium [Lipitor] 80 mg PO QHS #30 tab Transmission Status: Received by [facility][id number] Nicotine [Nicoderm Cq (PBKC)] 21 mg TRANSDERM. DAILY #14 patch Transmission Status: Received by [facility][id number] Clopidogrel Bisulfate [Plavix] 75 mg PO DAILY #30 tab Transmission Status: Received by [facility][id number] Primary Care Physician: Sandro Landin MD [Primary Care Provider] - Please follow up with your Primary Care Physician in: 1 Week Please Follow Up With: Fish Rodríguez MD When: 2 Weeks Disposition: Home Minutes spent on discharge:: 35 Patient Condition:: Stable Medical Necessity - Tobacco Use Smoking Status: Current every day smoker Tobacco Use: Cigarettes Meaningful Use Info Meaningful Use Diagnoses (Choose all that apply): AMI - AMI/Post PCI/Angioplasty Aspirin given w/in 24hrs of arrival?: Yes ASA at discharge?: Yes Statins at discharge?: Yes Leodan/ARB at discharge?: No Reason Leodan/ARB not ordered:: Allergy Beta Terry at discharge?: Yes Done w/ Acute AK measure.: Yes <Shantel Mccloud - Last Filed: 01/07/20 15:54> Discharge Date and Diagnosis - Secondary Discharge Diagnosis Chronic Problems: Chronic Problems Rosacea (Chronic) Hypothyroid (Chronic) Depression (Chronic) Anxiety (Chronic) Morbid obesity with BMI of 40.0-44.9, adult (Chronic) Hospital Course and Treatment Summary of Care Provided: This patient was seen in conjunction with Elizabeth Mcgee NP. I have independently interviewed and examined the patient and reviewed pertinent historical, laboratory, and other data. Please refer to her note for patient's presentation, findings, and recommendations. 64-year-old female with past medical history of hypothyroidism, anxiety/depression, morbid obesity who comes in with complaints of chest pain ongoing for 1 day. Chest pain woke her up. It was described as substernal, radiated to both arms associated with diaphoresis and lightheadedness. Chest pain persisted until the EMS gave her 2 nitros. Vitals in ED were stable. Troponins were elevated at 0.233. It peaked at 8. EKG shows normal sinus rhythm with no acute ST change. Cardiology was consulted. She had 2D echo that showed EF of 65%. She underwent cardiac catheterization that showed no recurrent stenosis. Patient also had CT of the chest that was negative for acute PE. On the day of discharge, she was seen and examined. Denied any new complaints. Physical Exam: Gen: Comfortable, not pale, not jaundiced, alert oriented x3, obese CVS:HS I +II, regular, no murmurs RESP: CTA GI: BS present and normal, nontender, no palpable organs EXT:No edema - Physical Exam Vitals/I&O's: Vital Signs Temp Pulse Resp BP Pulse Ox 98.5 F 80 16 143/91 H 93 01/06/20 09:03 01/06/20 09:03 01/06/20 09:03 01/06/20 10:47 01/06/20 09:03 Oxygen Delivery Method Room Air Weight: 115 kg Body Mass Index (BMI) 45.8 Intake and Output for Last 24 Hours 01/05/20 01/06/20 01/07/20 23:59 23:59 23:59 Intake Total 2388.33 / 2388.33 120 / 120 Balance 2388.33 / 2388.33 120 / 120 Inpatient E&M: [id number] Disch Hosp
--- NOTE | 2020-01-12 10:59 | CASEMGMT ---
Social Work Discharge Follow up Phone Call: Discharge Date: 01/06/20 Call Date: 01/12/20 Call Time: 1100 Reason for follow up: Follow up regarding advanced care planning Summary of Call: Message left with pt to return call to this jingle writer. No patient identifiers left on message. Interventions: If pt returns call, will discuss advanced care planning and offer outpatient appointment to assist with completing. CHRYSTAL Rachel
== END 2020-01-06 11:58 | disposition home or self-care (01) | DRG 281 ==
LOC: ED 12:56 → PCU 13:16
PROVIDERS: Admitting Provider Internal Medicine; Emergency Provider Emergency Medicine; PCP Family Medicine; Visit Provider Internal Medicine
DX: I21.4 Non-ST elevation (NSTEMI) myocardial infarction (principal); Z68.41 Body mass index [BMI] 40.0-44.9, adult; I10 Essential (primary) hypertension; E78.5 Hyperlipidemia, unspecified; E03.9 Hypothyroidism, unspecified; L71.9 Rosacea, unspecified; E66.01 Morbid (severe) obesity due to excess calories; F32.9 Major depressive disorder, single episode, unspecified; F41.9 Anxiety disorder, unspecified; F17.210 Nicotine dependence, cigarettes, uncomplicated; Z79.890 Hormone replacement therapy; Z79.899 Other long term (current) drug therapy
CPT/HCPCS: 36415; 71045; 71275; 76937; 80048; 80053; 80061; 84484; 85025; 85379; 93005; 93306; 93454; 97802; 99152; 99153; 99285; 99406; J7030; J7040; Q9957; Q9967; A4216; C1769; C1894; J2405

== ENCOUNTER → 2020-09-06 12:33 | Outpatient (CLI) | payer MEDICARE, MEDICAID, SELFPAY ==
[2020-01-26 11:59] VITALS: BMI 43.9
[2020-09-06 14:10] LABS: Amphetamine Urine VISTA NEGATIVE (<1000 ng/mL); Barbiturate Urine VISTA NEGATIVE (< 200 ng/mL); Benzodiazepine Urine VISTA NEGATIVE (< 200 ng/mL); Cocaine Urine VISTA NEGATIVE (< 300 ng/mL); Ecstacy Urine VISTA NEGATIVE (< 500 ng/mL); Methadone Urine VISTA NEGATIVE (< 300 ng/mL); PCP Urine VISTA NEGATIVE (< 25 ng/mL); THC Urine VISTA NEGATIVE (< 50 ng/mL); Vista UDS pH Range 6
== END ==
PROVIDERS: PCP Family Medicine; Referring Provider Anesthesiology Pain Medicine; Visit Provider Anesthesiology Pain Medicine
DX: F11.20 Opioid dependence, uncomplicated (principal)
CPT/HCPCS: 80307

== ENCOUNTER → 2021-07-09 11:14 | Outpatient (CLI) | payer MEDICARE, MEDICAID, SELFPAY ==
[2021-07-09 12:05] LABS: Amphetamine Urine VISTA NEGATIVE (<1000 ng/mL); Barbiturate Urine VISTA NEGATIVE (< 200 ng/mL); Benzodiazepine Urine VISTA NEGATIVE (< 200 ng/mL); Cocaine Urine VISTA NEGATIVE (< 300 ng/mL); Ecstacy Urine VISTA NEGATIVE (< 500 ng/mL); Methadone Urine VISTA NEGATIVE (< 300 ng/mL); PCP Urine VISTA NEGATIVE (< 25 ng/mL); THC Urine VISTA NEGATIVE (< 50 ng/mL); Vista UDS pH Range 6
== END ==
PROVIDERS: PCP Family Medicine; Referring Provider Anesthesiology Pain Medicine; Visit Provider Anesthesiology Pain Medicine
DX: F11.20 Opioid dependence, uncomplicated (principal)
CPT/HCPCS: 80307

== ENCOUNTER 2022-09-12 14:00 | Outpatient (RCR) | payer MEDICARE, MEDICAID, SELFPAY ==
--- NOTE | 2022-09-02 13:30 | HP.PTEVAL ---
Patient's Visit Information EMELY SAL is a 66 year old F referred to Physical Therapy by Dr. Acosta Prabhakar MD with a diagnosis of BACK AAND LEG PAIN. Date of Evaluation: 09/02/22 Physical Therapist: Shukri Virgen PT, Cert MDT, OCS - Visit Plan Frequency: 2x /Week Duration: 4 Weeks Plan: PT INTERVETIONS AQUATIC THERAPY FOR LUMBAR ROM ,BLE STRENGTHENING ,,LUMBAR ROM ,DLS AND POSTURAL EX'S - Subjective This 66 y/o female presents to physical therapy with back and leg pain. Patient has had lumbar pain and radicular symptoms ~ 30 years. Patient has been seen by DR Prabhakar for 6 years and has had injections every 3-4months which provides temporally relieve. Pain was provided pain medication and muscle relaxer. Patient has had MRI 2018 . Patient had lumbar surgery with laminectomy with fusion. Patient has had bilateral TKR replacement. Location of pain LS to bilateral legs to calf on right and left knee. Aggravating factors standing < 10 mins ,walking < 5mins needs to use QC , bending and lifting sitting. Alleviating factors rest and medication. Symptoms affects sleeping. Coughing/sneezing -. bowel/bladder-. Denies paresthesia/tingling. No abnormal night pain Patient pain affects QOL and function/housework tasks. SOCIAL: . VOCATION: disablity - Pain Bilateral Back Pain Intensity (Out of 10): 7 Pain Intensity Range: 10 Bilateral Lower Extremity Pain Intensity (Out of 10): 7 - Objective POSTURE: mod forward posture. GAIT: reciprocal pattern with 2 point gait with QC slow lashae mod forward posture. PALAPTION: pelvis asymmetries. AROM: WFL ,supine knee flexion 5-110 degrees. FLEXABILITY: hamstrings mod tight ,piriformis mod tight. MMT: ( peak force) quads 13.7 ,hamstrings 12.2 , hip flexion 9.7 right ,10.2 left ankle 4/5. LUMBAR ROM: flexion min/mod loss ,extension severe loss ,side glides mod loss - Special Tests L/S Slump test left side: Negative L/S Slump test right side: Negative L/S Left Straight Leg Raise: Negative L/S Right Straight Leg Raise: Negative Lumbar Standing: Flexion - Mechanical Response: No effect Lumbar Standing: Flexion - Symptoms During Testing: No effect Lumbar Standing: Flexion - Symptoms After Testing: No effect Lumbar Standing: Extension - Mechanical Response: No effect Lumbar Standing: Extension - Symptoms During Testing: Increases Lumbar Standing: Extension - Symptoms After Testing: No worse Lumbar Standing: Right Side Glides - Mechanical Response: No effect Lumbar Standing: Right Side [place] - Symptoms During Testing: No effect Lumbar Standing: Right Side [place] - Symptoms After Testing: No effect Lumbar Standing: Left Side [place] - Mechanical Response: No effect Lumbar Standing: Left Side [place] - Symptoms During Testing: No effect Lumbar Standing: Left Side [place] - Symptoms After Testing: No effect - Balance/Special Test Scores Oswestry Low Back Score: 35 - Goals Goal 1:: Patient to be I with HEP and Aquatic therapy Goal Time Frame: 4-6 Weeks Goal 2:: Patient to demonstrate 50% improvement with increase function and less pain Goal Time Frame: 4-6 Weeks Goal 3:: Patient to improve back oswestry score by 5 points to improve function Goal Time Frame: 4-6 Weeks Goal 4:: Patient to improve lumbar ROM for function of recovery to tie shoes Goal Time Frame: 4-6 Weeks Goal 5:: Patient to improve peak force of quads/hams/hip by 5 to improve gait Goal Time Frame: 4-6 Weeks - Rehabilitation Potential Physical Therapy Diagnosis: This patient has comorbities to influence patient condition to include lumbar fusion and bilateral knee replacement and needs QC for gait with patient and pain with position with standing and walking ,impairs and ADL's and weakness in legs bilateral thus benefit from skilled PT Rehabilitation Potential: Good - Anticipated Interventions Patient/Client Instruction: Educate patient on: Condition, Plan of Care For the Purpose of:: To decrease pain, To increase ROM, To improve muscle performance and motor function, To improve ability to perform ADL's, To improve gait and locomotor functions, To improve health of tissue, To decrease soft tissue restriction, To increase flexibility/ROM, To prevent re-injury, To improve tolerance to ADL's Therapeutic Exercise to Include: Strength training, Endurance training, Balance training, In an aquatic setting, Passive ROM, Active ROM, Dynamic Lumbar Stabilization For the Purpose of:: To decrease pain, To increase ROM, To improve muscle performance and motor function, To improve ability to perform ADL's, To increase tolerance to activity/condition/position, To improve ability of physical actions for home/community/work/leisure, To improve health of tissue, To decrease soft tissue restriction, To increase flexibility/ROM, To improve tolerance to ADL's Thank you for the opportunity to evaluate your patient. For Medicare and Medicare HMO plans, please review the plan of care and approve it. It will need to be FAXED BACK to us at [phone] for Medicare purposes. For Medicare only, by signing this I certify the plan of care. Please let me know if there are questions or concerns regarding this plan of care. Physician Signature: Date:
--- NOTE | 2022-12-03 10:32 | HP.PT.NRP ---
EMELY SAL was seen in my office for initial evaluation on 09/02/22. The following Plan of Care was established for this patient: Initial Frequency: 2x /Week Initial Duration: 4 Weeks Patient/Client Instruction: Educate patient on: Condition, Plan of Care For the Purpose of:: To decrease pain, To increase ROM, To improve muscle performance and motor function, To improve ability to perform ADL's, To improve gait and locomotor functions, To improve health of tissue, To decrease soft tissue restriction, To increase flexibility/ROM, To prevent re-injury, To improve tolerance to ADL's Therapeutic Exercise to Include: Strength training, Endurance training, Balance training, In an aquatic setting, Passive ROM, Active ROM, Dynamic Lumbar Stabilization For the Purpose of:: To decrease pain, To increase ROM, To improve muscle performance and motor function, To improve ability to perform ADL's, To increase tolerance to activity/condition/position, To improve ability of physical actions for home/community/work/leisure, To improve health of tissue, To decrease soft tissue restriction, To increase flexibility/ROM, To improve tolerance to ADL's This patient was last seen in our office . Pertinent comments regarding their Physical therapy will appear below: Patient seen back pain for Aquatic therapy for 3 sessions ,but pain is NB At this point I will be discontinuing this patient from physical therapy. I would be happy to see this patient again in the future if found appropriate by the physician. Thank you! Shukri Virgen, PT, Cert MDT, OCS Balance/Gait/Functional tests - Balance/Special Test Scores Oswestry Low Back Score: 28
== END 2022-09-12 19:00 | disposition short-term general hospital (02) ==
LOC: PT 14:00
PROVIDERS: PCP Family Medicine; Referring Provider Anesthesiology Pain Medicine; Visit Provider Anesthesiology Pain Medicine
DX: M54.9 Dorsalgia, unspecified (principal); M79.606 Pain in leg, unspecified
CPT/HCPCS: 97110; 97113; 97162

== ENCOUNTER → 2022-10-14 | Outpatient (CLI) | payer MEDICARE, MEDICAID, SELFPAY ==
[2022-10-14 16:04] LABS: Amphetamine Urine VISTA NEGATIVE (<1000 ng/mL); Barbiturate Urine VISTA NEGATIVE (< 200 ng/mL); Benzodiazepine Urine VISTA NEGATIVE (< 200 ng/mL); Cocaine Urine VISTA NEGATIVE (< 300 ng/mL); Ecstacy Urine VISTA NEGATIVE (< 500 ng/mL); Methadone Urine VISTA NEGATIVE (< 300 ng/mL); PCP Urine VISTA NEGATIVE (< 25 ng/mL); THC Urine VISTA NEGATIVE (< 50 ng/mL); Vista UDS pH Range 6
== END | disposition home or self-care (01) ==
LOC: LAB 15:12
PROVIDERS: PCP Family Medicine; Referring Provider Anesthesiology Pain Medicine; Visit Provider Anesthesiology Pain Medicine
DX: F11.20 Opioid dependence, uncomplicated (principal)
CPT/HCPCS: 80307